=== PATIENT | female | born 1930 | race Caucasian/White ===

== ENCOUNTER → 2016-08-24 | Outpatient (CLI) | payer MEDICARE, BC ==
--- NOTE | 2016-08-24 15:41 | US ---
EXAMINATION TYPE: US kidneys/renal and bladder DATE OF EXAM: 08/24/2016 3:05 PM COMPARISON: NONE CLINICAL HISTORY: hematuria and not visible to patient. EXAM MEASUREMENTS: Right Kidney: 9.1 x 4.8 x 3.5cm Left Kidney: 9.0 x 4.0 x 3.5cm Post Void Residual Volume: 23.4ml ANATOMY: Right Kidney: hyperechoic shadowing focus is noted at inferior pole = 0.4 x 0.2 x 0.3cm and also note d at upper pole = 0.3x 0.3 x 0.2cm, some caliectasis suspected at the lower pole, there may be a prom inent extrarenal pelvis Left Kidney: multiple hyperechoic shadowing stones with largest noted at lower pole = 1.0 x 1.4 x 0.7 cm and appears to be at renal pelvis, but no hydro is seen, suspect an extrarenal pelvis Bladder: within normal limits Bilateral Jets seen: yes Normal Post Void Residual: yes Bilateral ureteral jets are seen. IMPRESSION: Bilateral nephrolithiasis
== END ==
LOC: RADUSWWP 14:18
PROVIDERS: ATTEND Internal Medicine Geriatric Medicine
DX: N20.0 Calculus of kidney (principal)
CPT/HCPCS: 76770

== ENCOUNTER → 2016-11-07 | Outpatient (CLI) | payer MEDICARE, BC ==
--- NOTE | 2016-11-08 10:06 | MM ---
Reason for exam: screening (asymptomatic). Last mammogram was performed 1 year ago. History: Patient is postmenopausal. Family history of premenopausal breast cancer in mother. Benign stereotactic core biopsy of the left breast, July 31, 2003. Physical Findings: A clinical breast exam by your physician is recommended on an annual basis and results should be correlated with mammographic findings. MG 3D Screening Mammo W/Cad Bilateral CC and MLO view(s) were taken. Prior study comparison: November 06, 2015, bilateral MG screening mammo w CAD. November 05, 2014, right breast MG work up mamm w CAD RT. Finding: There are typically benign calcifications in both breasts. Previous mammotome biopsy in the in the left breast. No significant changes in finding since November 06, 2015 and November 05, 2014. ASSESSMENT: Benign, BI-RAD 2 RECOMMENDATION: Routine screening mammogram of both breasts in 1 year.
== END | disposition home or self-care (01) ==
LOC: RADMAMWWP 10:50
PROVIDERS: ATTEND Internal Medicine Geriatric Medicine
DX: Z12.31 Encounter for screening mammogram for malignant neoplasm of breast (principal)
CPT/HCPCS: 77063; G0202

== ENCOUNTER → 2017-01-03 | Outpatient (CLI) | payer MEDICARE, BC ==
--- NOTE | 2017-01-03 19:52 | US ---
EXAMINATION TYPE: US kidneys/renal and bladder DATE OF EXAM: 01/03/2017 4:45 PM COMPARISON: 08/2016 CLINICAL HISTORY: R31.9 HEMATURIA. EXAM MEASUREMENTS: Right Kidney: 8.8 x 3.9 x 3.3 cm Left Kidney: 8.6 x 3.1 x 3.1 cm Post Void Residual Volume: 2.2 mL Right Kidney: non obstructing small calculi 0.4 mid upper pole . 0.3 lower pole calculi. No hydroneph rosis. Left Kidney: no hydronephrosis 1.3 x 1.1 x 3 cm, 0.8 x 0.7 x 0.6 cm lower pole calculi, smaller probable calculi also Bladder: wnl Bilateral Jets seen: rt jet seen Normal Post Void Residual: Yes . IMPRESSION: Bilateral nonobstructing renal calculi
== END | disposition home or self-care (01) ==
LOC: RADUSWWP 16:11
PROVIDERS: ATTEND Internal Medicine Geriatric Medicine
DX: N20.0 Calculus of kidney (principal)
CPT/HCPCS: 76770

== ENCOUNTER → 2017-01-16 | Outpatient (CLI) | payer MEDICARE, BC ==
[~2017-01-16] MED LIST: DENOSUMAB 60 MG/ML 1 ML SYRINGE SQ ONE
[2017-01-16 10:28] VITALS: BP 151/77; PULSE 67; RESP 18; TEMP 98.1
== END | disposition home or self-care (01) ==
LOC: PROCWHC3 09:39
PROVIDERS: ATTEND Internal Medicine Geriatric Medicine
DX: M81.0 Age-related osteoporosis without current pathological fracture (principal)
CPT/HCPCS: 96372; J0897

== ENCOUNTER → 2017-11-22 | Outpatient (CLI) | payer MEDICARE, BC ==
--- NOTE | 2017-11-24 11:49 | MM ---
Reason for exam: screening (asymptomatic). Last mammogram was performed 1 year ago. History: Patient is postmenopausal. Family history of premenopausal breast cancer in mother. Benign stereotactic core biopsy of the left breast, July 31, 2003. Physical Findings: A clinical breast exam by your physician is recommended on an annual basis and results should be correlated with mammographic findings. MG 3D Screening Mammo W/Cad Bilateral CC and MLO view(s) were taken. Prior study comparison: November 07, 2016, bilateral MG 3d screening mammo w/cad. November 06, 2015, bilateral MG screening mammo w CAD. There are scattered fibroglandular densities. Previous mammotome biopsy in the left breast. Tiny nodular asymmetry central right MLO view middle to posterior depth incompletely disperses on 3D images and was not seen previously. Possible vessel tortuosity. A 6 month follow up recommended. ASSESSMENT: Probably benign, BI-RAD 3 RECOMMENDATION: Follow-up diagnostic mammogram of the right breast in 6 months.
== END | disposition home or self-care (01) ==
LOC: RADMAMWWP 14:46
PROVIDERS: ATTEND Internal Medicine Geriatric Medicine
DX: Z12.31 Encounter for screening mammogram for malignant neoplasm of breast (principal)
CPT/HCPCS: 77063; 77067

== ENCOUNTER → 2018-01-18 | Outpatient (CLI) | payer MEDICARE, BC ==
[2018-01-18 10:00] VITALS: BP 157/68; PULSE 60; RESP 18; TEMP 97.8
== END | disposition home or self-care (01) ==
LOC: PROCWHC3 09:38
PROVIDERS: ATTEND Internal Medicine Geriatric Medicine
DX: M81.0 Age-related osteoporosis without current pathological fracture (principal)
CPT/HCPCS: 96372; J0897